=== PATIENT | male | born 1995 | race Caucasian/White ===

== ENCOUNTER 2021-04-12 16:14 | Emergency (ER) | payer SELFPAY ==
[~2021-04-12] VITALS: Ht 175.3 cm; Wt 75.0 kg
[2021-04-12] MEDS ORDERED: CLIN-26 PO (16:17)
[2021-04-12 16:20] VITALS: BP 109/71
== END 2021-04-12 19:30 | disposition left against medical advice (07) ==
LOC: EDBD 16:19 → EMS 16:19
DX: R21 Rash and other nonspecific skin eruption (principal); Z53.21 Procedure and treatment not carried out due to patient leaving prior to being seen by health care provider

== ENCOUNTER 2021-04-14 18:31 | Emergency (ER) | payer SELFPAY ==
[~2021-04-14] VITALS: Ht 175.3 cm; Wt 72.7 kg
[~2021-04-14 18:31] MED LIST: CLIN-26 PO
[2021-04-14 18:34] VITALS: BP 132/79
[2021-04-14] MEDS ORDERED: DOXYCYCLINE HYCLATE 100 MG TABLET PO ONE (21:15)
== END 2021-04-14 21:30 | disposition home or self-care (01) ==
LOC: EMS 18:32
DX: B35.9 Dermatophytosis, unspecified (principal); J02.9 Acute pharyngitis, unspecified; Z88.8 Allergy status to other drugs, medicaments and biological substances
CPT/HCPCS: 99283